=== PATIENT | female | born 1950 | race Caucasian/White ===

== ENCOUNTER 2019-03-08 10:02 | Inpatient (IN) | payer MEDICARE ==
[2019-03-08] MEDS ORDERED: Dexamethasone 10 MG/ML VIAL ONE (10:07)
[2019-03-08] MEDS ORDERED: Magnesium 2 GM/50 ML BAG (IN WATER) ONE (10:07)
[2019-03-08] MEDS ORDERED: Lorazepam 2 MG/ML VIAL ONE (10:11)
[2019-03-08] MEDS ORDERED: Albuterol Sulfate 2.5 mg/0.5 ml Neb ONE (10:27)
[2019-03-08 10:33] LABS: Actual Bicarbonate (HCO3a) 19.8 mEq/L (22-28); Analyzer IN Cardio ER; Base Excess (BEa) -6.4 mEq/L (-2.0 to +3.0); CO2 Tension 41.7 mmHg (35.0-45.0); Calcium, Ionized 1.18 mmol/L (1.12-1.30); Carboxyhemoglobin (COHb) 0.4 gm% (0.0-3.0); Hemoglobin (Hb) 13.8 g/dL (12.0-16.0); O2 Tension (PaO2) 100.4 mmHg (> 80.0); Potassium - ABG Lab 3.97 mmol/L (3.70-5.30); pH, Arterial 7.29 (7.35-7.45)
[2019-03-08 10:36] LABS: #Basophils 0.1 thou/uL (0.0-0.2); #Monocytes 0.7 thou/uL (0.11-0.59); #Neutrophils 17.4 thou/uL (1.40-6.50); %Basophils 0.3 % (0.0-1.0); %Eosinophils 0.2 % (0.0-10.0); %Lymphocytes 5.4 % (21.0-51.0); %Monocytes 3.7 % (0.0-10.0); %Neutrophils 90.4 % (42.0-75.0); Hemoglobin 13.7 g/dL (12.0-16.0); Mean Corpuscular HGB CONC 34.7 g/dL (32.0-36.0); Mean Corpuscular Hemoglobin 29.8 pg (27.0-31.0); Mean Corpuscular Volume 85.9 fL (78.0-98.0); Mean Platelet Volume 8.2 fL (7.4-10.4); Platelet Count 326 thou/uL (130-400); RBC Distribution Width 12.3 % (11.5-14.5); White Blood Cell (WBC) Count 19.3 thou/uL (4.8-10.8)
[2019-03-08 10:42] LABS: Puncture Site RR
[2019-03-08 10:43] LABS: ALV-art Gradient 104.155 (0-20)
[2019-03-08 11:00] LABS: ALT (SGPT) 15 U/L (8-55); AST (SGOT) 30 U/L (5-34); Albumin 4.4 g/dL (3.4-4.8); Alkaline Phosphatase 77 U/L (40-110); Anion Gap 17 mmol/L (10-20); BUN (Urea Nitrogen) 38 mg/dL (9.8-20.1); Bilirubin, Total 0.3 mg/dL (0.2-1.2); CK (CPK) 772 U/L (29-168); Calc. Creatinine Clearance 0 mL/min (70-130); Calcium 9.1 mg/dL (7.8-10.44); Carbon Dioxide 22 mmol/L (23-31); Chloride 104 mmol/L (98-107); Estimated GFR-MDRD 36; Globulin 2.6 g/dL (2.4-3.5); Glucose 191 mg/dL (80-115); Lipase 27 U/L (8-78); Potassium 4.2 mmol/L (3.5-5.1); Sodium 139 mmol/L (136-145)
[2019-03-08 11:19] LABS: CKMB 5.3 ng/mL (0-6.6)
--- NOTE | 2019-03-08 12:29 | PDOC.FPRHP ---
- History of Present Illness Chief Complaint: SOB History of Present Illness: This is a 68 yo female with a pmh of HTN, HLD,DM2 who presents to the ED as a transfer from [place] with a cc of SOB. She states the symptoms started last Wednesday and worsened through the weekend. They were assoicated with cough, yellow sputum production, SINGH, nausea, and wheezing. She states on Wednesday she saw her PA who prescribed 3 medication which she does not remember. (I assume an inhaler, steroids, and azithromycin, her will bring them to the nurse 's station.) She denies a history of COPD but reports a 34 pack history of smoking. She reports quitting 8 years ago. She denies chest pain, diaphoresis, fever, chills, dizziness, lightheadedness, or palpitations. She does not remember her medications but did give a list to the nurses in [place] ED Course: Nitro 1 inch lovenox 60mg aspirin 324mg methylprednisolone 125mg ipatropium albuterol neb x2 duoneb x2 Decadron 10mg - Allergies/Adverse Reactions Allergies Allergy/AdvReac Type Severity Reaction Status Date / Time diphenhydramine Allergy Verified 03/08/19 12:38 [From Benadryl] Penicillins Allergy Verified 03/08/19 12:38 - Home Medications Medication Instructions Recorded Confirmed Type Albuterol Sulfate [Ventolin Hfa] 1 puff IN PRN PRN 03/08/19 03/08/19 History Azithromycin 250 mg PO DAILY 03/08/19 03/08/19 History Cholecalciferol (Vitamin D3) 1,000 unit PO DAILY 03/08/19 03/08/19 History [Vitamin D3] Gemfibrozil 600 mg PO BID-AC 03/08/19 03/08/19 History Glimepiride 4 mg PO BID 03/08/19 03/08/19 History Liraglutide [Saxenda] 3 mg SQ DAILY 03/08/19 03/08/19 History Valsartan [Diovan] 160 mg PO DAILY 03/08/19 03/08/19 History metFORMIN HCl [Metformin HCl] 1,000 mg PO BID 03/08/19 03/08/19 History - History PMHx: HTN, HLD PSHx: Lumbar disc surgery FHx: noncontributory Social: 34 pack year history, occasional alcohol, denies drug use - Review of Systems General: denies: fever/chills, weight/appetite/sleep changes, night sweats, fatigue Eyes: denies: eye pain, vision changes ENT: reports: nasal congestion. denies: rhinorrhea Respiratory: reports: cough, congestion, shortness of breath, exercise intolerance Cardiovascular: denies: chest pain, palpitation, edema, paroxysmal nocturnal dyspnea, orthopnea Gastrointestinal: reports: nausea. denies: vomiting, diarrhea, constipation, abdominal pain, GI bleeding Genitourinary: denies: incontinence, dysuria Skin: denies: rashes, lesions Musculoskeletal: denies: pain, tenderness Neurological: denies: numbness, syncope Psychological: denies: anxiety, depression - Vital signs BP: 113/82 HR: 128 RR: 24 Tmax: 97.7 Pox: 100% on Bipap (fio2 35) Wt: 65 kg - Physical Exam Constitutional: NAD, awake, alert and oriented, well developed HEENT: PERRLA, grossly normal vision, grossly normal hearing, other (dry mm) Neck: supple, trachea midline, no JVD Chest: no-tender to palpation, no lesions Heart: normal S1/S2, no murmurs/rubs/gallops, pulses present, other (Tachycardic ) Lungs: other (Diffuse end expiratory wheezing) Abdomen: soft, non-tender, bowel sounds present, no masses/distention, no hernias Musculoskeletal: normal tone, ROM grossly normal Neurological: no focal deficit, normal sensation Skin: capillary refill <2 seconds Heme/Lymphatic: no unusual bruising or bleeding, no purpura Psychiatric: normal mood and affect, good judgment and insight FMR H&P: Results - Labs Result Diagrams: 03/08/19 10:26 03/08/19 10:26 Lab results: WBC 19.3 thou/uL (4.8-10.8) H 03/08/19 10:26 Hgb 13.7 g/dL (12.0-16.0) 03/08/19 10:26 Hct 39.6 % (36.0-47.0) 03/08/19 10:26 MCV 85.9 fL (78.0-98.0) 03/08/19 10:26 Plt Count 326 thou/uL (130-400) 03/08/19 10:26 Neutrophils % 90.4 % (42.0-75.0) H 03/08/19 10:26 ABG pH 7.29 (7.35-7.45) L 03/08/19 10:25 ABG pCO2 41.7 mmHg (35.0-45.0) 03/08/19 10:25 ABG pO2 100.4 mmHg (> 80.0) H 03/08/19 10:25 Sodium 139 mmol/L (136-145) 03/08/19 10:26 Potassium 4.2 mmol/L (3.5-5.1) 03/08/19 10:26 Chloride 104 mmol/L (98-107) 03/08/19 10:26 Carbon Dioxide 22 mmol/L (23-31) L 03/08/19 10:26 BUN 38 mg/dL (9.8-20.1) H 03/08/19 10:26 Creatinine 1.45 mg/dL (0.6-1.1) H 03/08/19 10:26 Glucose 191 mg/dL (80-115) H 03/08/19 10:26 Lactic Acid 2.8 mmol/L (0.5-2.2) H 03/08/19 10:26 Calcium 9.1 mg/dL (7.8-10.44) 03/08/19 10:26 Total Bilirubin 0.3 mg/dL (0.2-1.2) 03/08/19 10:26 AST 30 U/L (5-34) 03/08/19 10:26 ALT 15 U/L (8-55) 03/08/19 10:26 Alkaline Phosphatase 77 U/L (40-110) 03/08/19 10:26 Creatine Kinase 772 U/L (29-168) H 03/08/19 10:26 CK-MB (CK-2) 5.3 ng/mL (0-6.6) 03/08/19 10:26 B-Natriuretic Peptide 282.6 pg/mL (0-100) H 03/08/19 10:26 Serum Total Protein 7.0 g/dL (6.0-8.3) 03/08/19 10:26 Albumin 4.4 g/dL (3.4-4.8) 03/08/19 10:26 Lipase 27 U/L (8-78) 03/08/19 10:26 - Radiology Interpretation Chest x-ray Status: image reviewed by me, report reviewed by me (No acute process, pneumonia , or fluid overload) FMR H&P: A/P - Problem List (1) Acute respiratory failure with hypoxia Current Visit: Yes Status: Acute Code(s): J96.01 - ACUTE RESPIRATORY FAILURE WITH HYPOXIA (2) COPD exacerbation Current Visit: Yes Status: Acute Code(s): J44.1 - CHRONIC OBSTRUCTIVE PULMONARY DISEASE W (ACUTE) EXACERBATION (3) HTN (hypertension) Current Visit: Yes Status: Acute Code(s): I10 - ESSENTIAL (PRIMARY) HYPERTENSION (4) DM2 (diabetes mellitus, type 2) Current Visit: Yes Status: Acute (5) HLD (hyperlipidemia) Current Visit: Yes Status: Acute Code(s): E78.5 - HYPERLIPIDEMIA, UNSPECIFIED - Plan This is a 68 yo female with a pmh of HTN, DM2, HLD Acute hypoxic respiratory failure -Admit to IMCU -Bipap support -Pt will likely have short bipap requirement COPD exacerbation -As above -Duonebs, po steroids, doxycycline -Repeat cxr as needed -Pending Procal NSTEMI, likely type 2 -No chest pain -Heart score of 5 -S/P therapeutic lovenox -Cardiology consulted -Tele monitoring REJI vs. CKD 3 -Fluid recussitation -Will monitor -Holding valsartan Elevated BNP -No objective or radiographic evidence for fluid overload -Pending Echo HTN -Holding valsartan -PRN medications in place HLD -Continue home medications DM2 -Continue home saxenda and glimepiride -ACHS accuchecks, mild SSI -Holding metformin for now Code: Full Prophylaxis: None Family: at bedside Fluids: LR 125 Diet: Heart healthy Disposition: DC in 2-3 days PCP: BHAVIK Hsieh (CC) Addendum - Attending - Attending Attestation Date/Time: 03/08/19 1401 I personally evaluated the patient and discussed the management with Dr. Cole I agree with the History, Examination, Assessment and Plan documented above with any addition or exceptions noted below. See my dictated H&P for details. document #[id number]
[2019-03-08] MEDS ORDERED: HumaLOG 300 UNITS/3 ML VIAL SC PRN (13:33)
[2019-03-08] MEDS ORDERED: Dextrose 5% in Water 1,000 ML IV PRN (13:33)
[2019-03-08] MEDS ORDERED: Dextrose 50% Abboject 50 ML SYRINGE SLOW IVP PRN (13:33)
[2019-03-08] MEDS ORDERED: Nitroglycerin 0.4 MG TAB (25 Tab Bottle) SL PRN (13:33)
[2019-03-08] MEDS ORDERED: Ondansetron ODT 4 MG TAB PO PRN (13:33)
[2019-03-08] MEDS ORDERED: Ondansetron PF 4 MG/2 ML Vial IVP PRN (13:33)
[2019-03-08 13:44] VITALS: BMI 28.0
[2019-03-08 13:58] LABS: Hemoglobin A1c 6.7 % (4.0-6.0)
--- NOTE | 2019-03-08 14:06 | HP ---
CHIEF COMPLAINT: Shortness of breath. HISTORY OF PRESENT ILLNESS: I personally examined and assessed the patient and reviewed all documentation and orders and discussed the care of this patient with Dr. Cole. I agree with all documentation of H and P unless otherwise stated in the following attestation. In summary, Ms. Ayon is a pleasant 68-year-old female with known past medical history of insulin-dependent type 2 diabetes mellitus and chronic bronchitis. She presents with a 3- to 4-day history of progressively worsening shortness of breath. She states she was seen by her PCP, who is a PA in [facility] in [place] 2 days ago and was started on oral steroids, antibiotics, and inhalers. The patient and her state that she progressively worsened throughout the past 2 days, prompting her to seek evaluation in the emergency room this morning. States it has been several years since her last COPD flare. The patient is not currently smoking. Denies fevers or chills. While in the [facility], the patient was found to have elevated troponins. She was given therapeutic Lovenox, IV Decadron, aspirin, DuoNebs, and Levaquin. She was also given Solu-Medrol and IV magnesium. She arrived to [facility] in [place] on 6L nasal cannula, was started on BiPAP. She states she is breathing much more easily on BiPAP. Please see Dr. Cole's note for past medical, surgical, social, family, and medication history. FOCUSED PHYSICAL EXAMINATION: VITAL SIGNS: Blood pressure 121/86, pulse 131, respiratory rate 24, temperature 97.9, and oxygen saturation 100% on BiPAP, 31% FiO2. GENERAL: Mild respiratory distress. Alert and oriented x4. Answers questions appropriately. Speaks in full sentences. PULMONARY: Diffuse wheezing, increased respiratory work. CARDIAC: Tachycardic rate, regular rhythm. No murmurs, rubs, or gallops. SKIN: Warm, dry, and intact. PERTINENT LABORATORY FINDINGS: White blood cell count 12.7, trended up to 19.3. Blood gas showed a pH 7.29, pCO2 of 41, pO2 of 100.4, bicarbonate 19.8. Creatinine 1.38 and GFR 38. BNP 228, trended up to 282. Troponin 1.081, trended up to 1.232. Lactic acid 2.8. Influenza negative. Chest x-ray, personally reviewed by me, no obvious infiltrate or signs of pulmonary vascular congestion. No acute processes on the official read. EKG, reviewed by me, taken in [place] [facility]: Sinus tachycardia, rate 127, normal intervals, no overt ST elevation or depression. No T-wave inversions noted. No change from EKG in [facility]. ASSESSMENT AND PLAN: Ms. Ayon is a 68-year-old female, who presents with a 3 - to 4-day history of worsening shortness of breath as noted, appears to have failed outpatient treatment for chronic obstructive pulmonary disease exacerbation as follows. 1. Acute hypoxic respiratory failure secondary to chronic obstructive pulmonary disease exacerbation. We will continue steroids and antibiotics. Switch antibiotics to doxycycline. Procalcitonin has been drawn and is pending at this time. Continue BiPAP in the IMCU. Cultures drawn. 2. Chronic obstructive pulmonary disease exacerbation. See #1. 3. Acute viu-PB-fpljexvnt myocardial infarction type 2 secondary to chronic obstructive pulmonary disease exacerbation. The patient denies history of coronary artery disease. Cardiology has been consulted. Continue Lovenox. Transthoracic echocardiogram ordered due to elevated BNP. I suspect all of her cardiac lab abnormalities are related to her underlying chronic obstructive pulmonary disease exacerbation. We will risk stratify and start appropriate medications. 4. Insulin-dependent type 2 diabetes mellitus. Aggressive sliding scale coverage. 5. Chronic medical problems, per resident notes. DISPOSITION: Inpatient IMCU greater than 2 midnights. Job ID: [id number] MTDD
[2019-03-08] MEDS: Lactated Ringer's 1,000 ML IV SCH ×2 (14:10→17:08)
[2019-03-08 14:11] LABS: Lactic Acid 4.6 mmol/L (0.5-2.2)
[2019-03-08 14:16] LABS: Critical Call Chem Troponin I RESULT DECREASING; Troponin I 0.916 ng/mL (< 0.028)
--- NOTE | 2019-03-08 14:52 | CON ---
DATE OF CONSULTATION: 03/08/2019 REASON FOR CONSULTATION: COPD exacerbation. HISTORY OF PRESENT ILLNESS: Ms. Ayon is a pleasant 68-year-old female, who presents with a 3-day history of increasing shortness of breath and wheezing. She saw her primary care provider on Wednesday and was prescribed some medication, which she does not know. Despite that, she got worse and came to the hospital. She has been given breathing treatments, steroids, and was intermittently on BiPAP, but now has improved and says she is breathing better. She has a 28-pqqv-diha history of smoking, but has not smoked in the last 8 years. She has not been exposed to anybody sick. She denies any history of COPD or asthma, but says she did have a bronchitis attack 5 years ago, for which she was hospitalized. PAST MEDICAL HISTORY: 1. Presumed COPD based on history. 2. Hypertension. 3. Hyperlipidemia. PAST SURGICAL HISTORY: Lumbar disk surgery. FAMILY MEDICAL HISTORY: Unremarkable. SOCIAL HISTORY: Smoking history as outlined above. Occasionally drinks alcohol. Does not use illicit drugs. REVIEW OF SYSTEMS: Twelve-point review of systems is otherwise negative. MEDICATIONS: Medications prior to admission: 1. Albuterol. 2. Azithromycin. 3. Cholecalciferol. 4. Gemfibrozil. 5. Glimepiride. 6. Diovan. 7. Metformin. PHYSICAL EXAMINATION: VITAL SIGNS: Temperature 96, pulse 129, blood pressure 123/63, O2 saturation 96%. GENERAL: She is awake, alert, and in no acute distress, but has profound audible wheezing. HEENT: Pupils are reactive. Sclerae are anicteric. Oropharynx is clear. NECK: No adenopathy. No JVD. No accessory muscle use. LUNGS: She has diffuse expiratory wheezing, best heard posteriorly. CARDIOVASCULAR: S1 and S2. Regular without audible murmur. ABDOMEN: Soft. Nontender to palpation. EXTREMITIES: No clubbing, cyanosis, or edema. LABORATORY DATA: Sodium 139, potassium 4.2, chloride 104, CO2 of 22, BUN 38, creatinine 1.4, glucose 191. Lactate was 4.6. Hemoglobin A1c 6.7. Troponin 0.9. CPK 772. ABG; pH of 7.29, pCO2 of 42, pO2 of 100. White blood cell count 19.3, hematocrit 39.6, platelet count 326. Chest x-ray from [place] demonstrates no infiltrates, mass, or effusion. ASSESSMENT: 1. Chronic obstructive pulmonary disease with exacerbation. 2. Acute hypoxic respiratory failure, requiring noninvasive ventilation. 3. Acute kidney injury. 4. Lactic acidosis. PLAN: 1. The patient has improved with treatment. She needs to stay in the intermediate care unit for BiPAP as needed. 2. I would treat her with intravenous steroids. 3. I would make her frequency of breathing treatments much sooner than what currently is written. 4. Agree with the empiric antibiotics. Job ID: [id number]
--- NOTE | 2019-03-08 15:33 | CON ---
DATE OF CONSULTATION: HISTORY OF PRESENT ILLNESS: The patient is a pleasant 68-year-old woman, who presents with increasing dyspnea. The patient has a history of bronchitis. The patient has no known cardiac history. The patient reports that she developed the acute onset of severe dyspnea. The patient denied having any chest discomfort. She was noted to have an elevated troponin level and admitted for further evaluation. The patient has several cardiac risk factors including hypertension, dyslipidemia, diabetes mellitus, and a family history of coronary artery disease. PAST MEDICAL HISTORY: 1. Bronchitis. 2. Diabetes mellitus. 3. Hypertension. 4. Dyslipidemia. PAST SURGICAL HISTORY: Lumbar disc surgery. SOCIAL HISTORY: Former smoker. FAMILY HISTORY: Positive family history of coronary artery disease. ALLERGIES: DIPHENHYDRAMINE AND PENICILLIN. SHE IS INTOLERANT TO STATIN THERAPY. MEDICATIONS: 1. Gemfibrozil 600 b.i.d. 2. Glimepiride 4 b.i.d. 3. Diovan 160 daily. 4. Metformin 1000 b.i.d. REVIEW OF SYSTEMS: Ten-point system otherwise unremarkable. PHYSICAL EXAMINATION: GENERAL: Well-developed woman, in mild distress. VITAL SIGNS: Blood pressure of 123/63. NECK: Full. LUNGS: Have marked diffuse bilateral wheezes. HEART: Regular rate and rhythm. Normal S1 and S2. No murmurs. ABDOMEN: Nondistended. EXTREMITIES: Showed no edema. VASCULAR: Radial pulses 2+. LABORATORY DATA: Sodium 139, potassium 4.2, chloride 104, bicarb 22, BUN 38, creatinine 1.45. Her CPK was 772 with an MB of 5.3, troponin 1.2. White blood cell count 19.3, hemoglobin 13.7, hematocrit 39.6, and platelets are 326. Her EKG revealed sinus tachycardia, otherwise normal ECG. Chest x-ray revealed normal heart size with no edema. IMPRESSION: 1. Chronic obstructive pulmonary disease exacerbation. 2. Elevated troponin with normal MB, probable type 2 myocardial infarction. 3. Diabetes mellitus. 4. Hypertension. 5. Renal insufficiency. 6. Dyslipidemia. This patient presents with a chronic obstructive pulmonary disease exacerbation. Her troponin is mildly elevated. This is most likely a type 2 myocardial infarction and not an acute coronary event. She does have multiple risk factors. After she recovers from her COPD exacerbation, she should undergo stress testing. The patient has been intolerant to statin therapy, but has not tried Livalo. We would also recommend the patient switch to Vascepa, which is recommended in all patients with type 2 diabetes mellitus and high triglycerides. We would discontinue her gemfibrozil. We will follow this patient with you through her hospitalization. Job ID: [id number] MTDD
[2019-03-08] MEDS ORDERED: Lactated Ringer's 500 ML IV SCH (15:45)
[2019-03-08 16:56] LABS: Critical Call Chem Troponin I RESULT DECREASING; Troponin I 0.773 ng/mL (< 0.028)
[2019-03-08] MEDS: HumaLOG 300 UNITS/3 ML VIAL SC PRN ×2 (17:06→20:29)
[2019-03-08] MEDS: Glimepiride 4 MG TAB PO SCH (17:07)
[2019-03-08] MEDS: Gemfibrozil 600 MG TAB PO SCH (17:07)
[2019-03-08] MEDS: methylPREDNISolone Sod Succ 40 MG VIAL IVP SCH (17:07)
[2019-03-08 19:47] LABS: Lactic Acid 3.7 mmol/L (0.5-2.2)
[2019-03-08] MEDS: Enoxaparin Sodium 40 MG/0.4 ML SYRINGE SC SCH (20:22)
[2019-03-08] MEDS: Doxycycline 100 MG CAP PO SCH (20:22)
[2019-03-08] MEDS: Icosapent Ethyl 1 GM CAPSULE PO SCH (20:22)
[2019-03-08] MEDS: Acetaminophen 325 MG TAB PO PRN (20:29)
[2019-03-08] MEDS ORDERED: Rosuvastatin 10 MG TAB PO SCH (21:00)
[2019-03-08] MEDS ORDERED: Enoxaparin Sodium 60 MG/0.6 ML SYRINGE SC SCH (21:00)
[2019-03-09] MEDS: methylPREDNISolone Sod Succ 40 MG VIAL IVP SCH ×4 (00:06→17:45)
[2019-03-09] MEDS: Benzonatate 100 MG CAP PO PRN ×3 (00:06→20:33)
[2019-03-09] MEDS: Lactated Ringer's 1,000 ML IV SCH ×3 (03:41→16:28)
[2019-03-09] MEDS: Acetaminophen 325 MG TAB PO PRN ×3 (03:43→20:33)
[2019-03-09 03:46] LABS: #Lymphocytes 0.6 thou/uL (1.20-3.40); #Monocytes 0.4 thou/uL (0.11-0.59); #Neutrophils 7.3 thou/uL (1.40-6.50); %Basophils 0.3 % (0.0-1.0); %Eosinophils 0.2 % (0.0-10.0); %Lymphocytes 6.6 % (21.0-51.0); %Monocytes 5.2 % (0.0-10.0); %Neutrophils 87.7 % (42.0-75.0); Hemoglobin 11.8 g/dL (12.0-16.0); Mean Corpuscular HGB CONC 34.2 g/dL (32.0-36.0); Mean Corpuscular Hemoglobin 29.5 pg (27.0-31.0); Mean Corpuscular Volume 86.5 fL (78.0-98.0); Mean Platelet Volume 8.1 fL (7.4-10.4); Platelet Count 229 thou/uL (130-400); RBC Distribution Width 12.3 % (11.5-14.5); Red Blood Cell (RBC) Count 3.98 mill/uL (4.20-5.40); White Blood Cell (WBC) Count 8.3 thou/uL (4.8-10.8)
[2019-03-09 03:58] LABS: Anion Gap 14 mmol/L (10-20); BUN (Urea Nitrogen) 42 mg/dL (9.8-20.1); Calc. Creatinine Clearance 39 mL/min (70-130); Calcium 8.5 mg/dL (7.8-10.44); Carbon Dioxide 25 mmol/L (23-31); Cardiac Risk 5.5 (Less than 4.5); Chloride 103 mmol/L (98-107); Cholesterol 210 mg/dl (< 200 Desired); Estimated GFR-MDRD 36; Glucose 258 mg/dL (80-115); HDL Cholesterol 38 mg/dL (>60 Neg Risk); LDL Cholesterol, Calculated 138 mg/dL; Potassium 4.5 mmol/L (3.5-5.1); Sodium 137 mmol/L (136-145); Triglycerides 171 mg/dL (Less than 150)
--- NOTE | 2019-03-09 06:12 | PDOC.FM ---
- Subjective Subjective: Pt states she is feeling better than yesterday. She is not 100% but better. She reports some dyspnea and SOB. She denies chest pain, nausea, vomiting, or abdominal pain. She wants to see her grandkids as soon as she can but understands that she likely needs to stay longer. - Objective MAR Reviewed: Yes Vital Signs & Weight: Vital Signs (12 hours) Temp Pulse Resp Pulse Ox 03/09/19 03:39 97.2 F L 03/09/19 03:28 103 H 20 97 03/09/19 01:07 104 H 22 H 98 03/08/19 23:48 97.0 F L 03/08/19 22:04 92 22 H 99 03/08/19 19:25 97.5 F L 03/08/19 19:11 114 H 22 H 97 Weight Weight 67.358 kg Most Recent Monitor Data Heart Rate from ECG 104 NIBP 144/79 NIBP BP-Mean 100 Respiration from ECG 23 SpO2 98 I&O: 03/07/19 03/08/19 03/09/19 06:59 06:59 06:59 Intake Total 1387 Output Total 250 Balance 1137 Result Diagrams: 03/09/19 03:00 03/09/19 03:00 Phys Exam - Physical Examination Constitutional: NAD HEENT: moist MMs Neck: no JVD Diffuse wheezing, improved air movement Cardiovascular: RRR, no significant murmur Gastrointestinal: soft, non-tender, no distention, positive bowel sounds Musculoskeletal: no edema, pulses present Neurological: moves all 4 limbs Psychiatric: A&O x 3 Skin: cap refill <2 seconds Dx/Plan (1) Acute respiratory failure with hypoxia Code(s): J96.01 - ACUTE RESPIRATORY FAILURE WITH HYPOXIA Status: Acute (2) COPD exacerbation Code(s): J44.1 - CHRONIC OBSTRUCTIVE PULMONARY DISEASE W (ACUTE) EXACERBATION Status: Acute (3) HTN (hypertension) Code(s): I10 - ESSENTIAL (PRIMARY) HYPERTENSION Status: Acute (4) DM2 (diabetes mellitus, type 2) Status: Acute (5) HLD (hyperlipidemia) Code(s): E78.5 - HYPERLIPIDEMIA, UNSPECIFIED Status: Acute - Plan Plan: This is a 68 yo female with a pmh of HTN, DM2, HLD Acute hypoxic respiratory failure -Off bipap, likely transfer to tele today COPD exacerbation -As above -Duonebs, po steroids, doxycycline -Repeat cxr as needed NSTEMI, likely type 2 -No chest pain -Heart score of 5 -Cardiology consulted -Tele monitoring REJI vs. CKD 3 -Fluid resuscitation -Will monitor -Holding valsartan Elevated BNP -No objective or radiographic evidence for fluid overload -Pending Echo HTN -Holding valsartan -PRN medications in place HLD -Continue home medications DM2 -Continue home saxenda and glimepiride -ACHS accuchecks, aggressive SSI, starting lantus temporarily -Holding metformin for now Addendum - Attending - Attending Attestation Date/Time: 03/09/19 1123 I personally evaluated the patient and discussed the management with Dr. Cole I agree with the History, Examination, Assessment and Plan documented above with any addition or exceptions noted below. Off BiPAP and breathing better today. Diffuse wheezes throughout. Will Transfer to telemetry and continue current treatment. Stress test in 1-2 days vs outpatient.
[2019-03-09] MEDS: HumaLOG 300 UNITS/3 ML VIAL SC PRN ×4 (06:25→21:48)
[2019-03-09] MEDS: Glimepiride 4 MG TAB PO SCH ×2 (06:25→17:45)
[2019-03-09] MEDS: Gemfibrozil 600 MG TAB PO SCH (06:25)
[2019-03-09] MEDS ORDERED: Insulin Glargine 10 UNITS in Pre-Filled Syringe 1 EACH SC SCH (09:00)
[2019-03-09] MEDS ORDERED: predniSONE 20 MG TAB PO SCH (09:00)
[2019-03-09] MEDS ORDERED: LIRAGLUTIDE 3 MG SC SCH (09:00)
[2019-03-09] MEDS: Icosapent Ethyl 1 GM CAPSULE PO SCH ×2 (09:08→20:31)
[2019-03-09] MEDS: Doxycycline 100 MG CAP PO SCH ×2 (09:08→20:32)
[2019-03-09] MEDS: Aspirin 325 mg Enteric Coated Tablet PO SCH (09:08)
--- NOTE | 2019-03-09 18:35 | PRG ---
DATE OF SERVICE: 03/09/2019 SUBJECTIVE: Ms. Ayon says she feels 100% better than when she came in. She says this is only the second time this has ever happened to her. The last time being 5 years ago. She is not currently smoking. OBJECTIVE: VITAL SIGNS: Oximetry is 97% on 2 L, respiratory rates in the teens, blood pressure 151/81, heart rate is 100. LUNGS: Distant and clear now. HEART: Regular rhythm. ABDOMEN: Soft. IMPRESSION AND PLAN: Chronic obstructive pulmonary disease/reactive airways. Clinically improved. Her echo ejection fraction on echocardiogram is estimated to be mildly reduced to 45% to 50%. Cardiology is following and I believe plans some more testing. She probably can be switched to nebulized treatments every 4 hours. She is currently not on any steroids. She currently is on IV steroids, I plan to discontinue those. Start p.o. steroids and add inhaled steroids to her nebulizer regimen. We will continue to follow. Job ID: [id number]
[2019-03-09] MEDS: Budesonide 0.5 MG/2 ML NEB INH SCH (18:45)
[2019-03-09] MEDS: Mometasone/Formoterol 120 PUFF INHALER INH SCH (18:46)
[2019-03-09] MEDS: Enoxaparin Sodium 40 MG/0.4 ML SYRINGE SC SCH (20:31)
[2019-03-09] MEDS ORDERED: Atorvastatin Calcium 40 MG TAB PO SCH (21:00)
[2019-03-10] MEDS: Acetaminophen 325 MG TAB PO PRN (00:15)
[2019-03-10] MEDS: Lactated Ringer's 1,000 ML IV SCH ×2 (01:15→06:17)
[2019-03-10] MEDS: Benzonatate 100 MG CAP PO PRN ×2 (02:02→16:24)
[2019-03-10 04:25] LABS: #Lymphocytes 1.2 thou/uL (1.20-3.40); #Neutrophils 9.1 thou/uL (1.40-6.50); %Eosinophils 0.2 % (0.0-10.0); %Lymphocytes 10.8 % (21.0-51.0); %Monocytes 8.5 % (0.0-10.0); %Neutrophils 80.6 % (42.0-75.0); Hemoglobin 11.7 g/dL (12.0-16.0); Mean Corpuscular HGB CONC 33.3 g/dL (32.0-36.0); Mean Corpuscular Hemoglobin 29.1 pg (27.0-31.0); Mean Corpuscular Volume 87.5 fL (78.0-98.0); Mean Platelet Volume 8.8 fL (7.4-10.4); Platelet Count 237 thou/uL (130-400); RBC Distribution Width 12.4 % (11.5-14.5); Red Blood Cell (RBC) Count 4.03 mill/uL (4.20-5.40); White Blood Cell (WBC) Count 11.2 thou/uL (4.8-10.8)
[2019-03-10 04:32] LABS: Anion Gap 12 mmol/L (10-20); BUN (Urea Nitrogen) 44 mg/dL (9.8-20.1); Calc. Creatinine Clearance 40 mL/min (70-130); Calcium 8.6 mg/dL (7.8-10.44); Carbon Dioxide 25 mmol/L (23-31); Chloride 105 mmol/L (98-107); Estimated GFR-MDRD 37; Glucose 242 mg/dL (80-115); Potassium 4.3 mmol/L (3.5-5.1); Sodium 138 mmol/L (136-145)
--- NOTE | 2019-03-10 06:44 | PDOC.FM ---
- Subjective Subjective: pt undergoing stress this AM. no acute events overnight. - Objective Vital Signs & Weight: Vital Signs (12 hours) Temp Pulse Resp Pulse Ox 03/10/19 02:21 104 H 20 96 03/10/19 00:00 97.6 F 03/09/19 22:21 106 H 20 97 03/09/19 20:00 98.2 F 03/09/19 18:46 104 H 20 97 03/09/19 18:45 104 H 20 97 03/09/19 18:44 104 H 20 97 Weight Weight 67.358 kg Most Recent Monitor Data Heart Rate from ECG 94 NIBP 166/78 NIBP BP-Mean 107 Respiration from ECG 19 SpO2 96 I&O: 03/08/19 03/09/19 03/10/19 06:59 06:59 06:59 Intake Total 3196 2354 Output Total 850 4300 Balance 2346 -1946 Result Diagrams: 03/10/19 03:31 03/10/19 03:31 Dx/Plan (1) Acute respiratory failure with hypoxia Code(s): J96.01 - ACUTE RESPIRATORY FAILURE WITH HYPOXIA Status: Acute (2) COPD exacerbation Code(s): J44.1 - CHRONIC OBSTRUCTIVE PULMONARY DISEASE W (ACUTE) EXACERBATION Status: Acute (3) DM2 (diabetes mellitus, type 2) Status: Acute (4) HLD (hyperlipidemia) Code(s): E78.5 - HYPERLIPIDEMIA, UNSPECIFIED Status: Acute (5) HTN (hypertension) Code(s): I10 - ESSENTIAL (PRIMARY) HYPERTENSION Status: Acute - Plan Plan: Acute hypoxic respiratory failure -improved, transfer to [facility] when bed available COPD exacerbation -As above -Duonebs, po steroids, doxycycline NSTEMI, likely type 2 -No chest pain, Heart score of 5 -Cardiology consulted - stress test pending REJI vs. CKD 3 -Fluid resuscitation -Holding valsartan/metformin -eval further today Elevated BNP -No objective or radiographic evidence for fluid overload - echo wnl HTN -Holding valsartan -PRN medications in place HLD -Continue home medications DM2 -Continue home saxenda and glimepiride -ACHS accuchecks, aggressive SSI, starting lantus temporarily -Holding metformin for now dispo: increase glucose control, await stress results for further dispo Addendum - Attending - Attending Attestation Date/Time: 03/10/19 110 I personally evaluated the patient and discussed the management with Dr. Brannon. I agree with the History, Examination, Assessment and Plan documented above with any addition or exceptions noted below. Lungs CTA-B on exam. RRR on cardiac exam. NM stress test showed fixed defect in apex. Will await cardiology recommendations for inpatient vs. outpatient cath. From a respiratory stand point, she is stable for d/c. Dispo pending plan with cardiology.
[2019-03-10] MEDS ORDERED: predniSONE 20 MG TAB PO SCH (08:00)
[2019-03-10] MEDS ORDERED: Insulin Glargine 15 UNITS in Pre-Filled Syringe 1 EACH SC SCH (09:00)
[2019-03-10] MEDS ORDERED: Valsartan 80 MG TAB PO SCH (09:00)
--- NOTE | 2019-03-10 10:45 | NM ---
NUCLEAR MEDICINE CARDIAC STRESS WITH EF AND WALL MOTION: HISTORY: Irregular EKG. HISTORY: Tobacco. Dyslipidemia. TECHNIQUE: Patient administered 10.3 mCi of technetium 99m submitted for rest imaging and 32.40 mCi of technetiu m 99m sestamibi for stress imaging. FINDINGS: There does appear to be a small focus of fixed defect involving the midportion of the septum and card iac apex. There does not appear to be any reversibility in the left ventricle. End diastolic volume is 87 mL. End systolic volume is 41 mL. TID day: 1.11. Cardiac gating and motion: Appropriate motion and thickening. 53% ejection fraction. IMPRESSION: Small fixed defect in the midportion of the septum and cardiac apex. Transcribed Date/Time: 03/10/2019 10:52 AM
[2019-03-10] MEDS: Doxycycline 100 MG CAP PO SCH (10:54)
[2019-03-10] MEDS: Icosapent Ethyl 1 GM CAPSULE PO SCH (10:54)
[2019-03-10] MEDS: Aspirin 325 mg Enteric Coated Tablet PO SCH (10:55)
[2019-03-10] MEDS: Glimepiride 4 MG TAB PO SCH ×2 (10:55→16:24)
[2019-03-10] MEDS: Mometasone/Formoterol 120 PUFF INHALER INH SCH (11:17)
[2019-03-10] MEDS: Budesonide 0.5 MG/2 ML NEB INH SCH (11:27)
[2019-03-10] MEDS ORDERED: Regadenoson 0.4 MG/5 ML SYRINGE ONE (11:48)
--- NOTE | 2019-03-10 13:44 | PRG ---
DATE OF SERVICE: 03/10/2019 SUBJECTIVE: The patient is doing reasonably well. Has no complaints. She wants to go home. OBJECTIVE: VITAL SIGNS: Her temperature is 97.6, pulse 85, respirations 19, and O2 saturation 97% on 2 L. HEENT: Unremarkable. NECK: No adenopathy or JVD. LUNGS: Clear without wheezing or rhonchi. CARDIAC: S1 and S2 regular. ABDOMEN: Soft. EXTREMITIES: No edema. ASSESSMENT: Chronic obstructive pulmonary disease/asthmatic bronchitis with exacerbation. PLAN: From my standpoint, she is clear to go home. She should finish out a course of antibiotics, taper steroids, and be given breathing treatments on as-needed basis. She should follow up in the office within a month and have PFTs performed. Pulmonary will sign off. Job ID: [id number]
[2019-03-10 16:06] VITALS: TEMP 97.5
[2019-03-10 16:30] VITALS: BP 182/82
--- NOTE | 2019-03-13 09:48 | DIS ---
DATE OF ADMISSION: 03/08/2019 DATE OF DISCHARGE: 03/10/2019 ADMITTING ATTENDING: Dr. Haris Allen. DISCHARGE ATTENDING: Dr. Haris Allen. CONSULTS: 1. Pulmonology, Dr. Rufino Riddle. 2. Cardiology, Dr. Israel Johansen. RESIDENT: Fam Brannon DO. DISCHARGE MEDICATIONS: 1. Glimepiride 4 mg p.o. b.i.d. 2. Gemfibrozil 600 mg p.o. b.i.d. 3. Metformin 1000 mg p.o. b.i.d. 4. Valsartan 160 mg p.o. daily. 5. Saxenda 3 mg SQ daily. 6. Vitamin D3 1000 units p.o. daily. 7. Azithromycin 250 mg qd. 8. Ventolin 1 puff inhaled p.r.n. 9. Doxycycline 100 mg p.o. b.i.d. 10. Dulera two puffs inhaled b.i.d. 11. Prednisone 40 mg p.o. q.a.m. with meals for the next 3 days. Discontinued medications are azithromycin. DISCHARGE DIAGNOSIS: Acute hypoxic respiratory failure secondary to chronic obstructive pulmonary disease exacerbation. SECONDARY DIAGNOSES: 1. Non-ST elevation myocardial infarction type 2. 2. Acute kidney injury versus chronic kidney disease. 3. Elevated BNP. 4. Hypertension. 5. Hyperlipidemia. 6. Diabetes mellitus type 2. IMAGING: Echocardiogram significant for left ventricular ejection fraction visually estimated at 45% to 50%. Nuclear medicine stress test is negative for reversible ischemia. HISTORY OF PRESENT ILLNESS/HOSPITAL COURSE: Ms. Ayon is a 68-year-old female with past medical history significant for hypertension, hyperlipidemia, diabetes mellitus type 2, presents to the emergency department as a transfer from [place] for a chief complaint of shortness of breath. This has happened to her before. She has had a change in sputum production. She denies having a known history of COPD, but has a significant past smoking history. Denied any chest pain at that time. In the emergency department, she was given nitroglycerin, Lovenox , aspirin, methylprednisone, ipratropium/albuterol nebs and Decadron 10 mg. The patient was determined to have acute hypoxic respiratory failure secondary to COPD versus acute coronary syndrome, indeterminate admission to the hospital for further evaluation and treatment was warranted. She was admitted to the IMCU at that time. The patient was placed on BiPAP, but quickly improved, weaned down to oxygen and eventually weaned off oxygen. The patient underwent a stress test, which was within normal limits. The patient continued to improve. Further evaluation revealed that most likely cause of her symptoms was acute COPD exacerbation. Deemed stable for discharge home with followup scheduled for pulmonology. DISCHARGE INSTRUCTIONS: 1. Location: Home. 2. Diet: Heart healthy, low-sodium, diabetic. 3. Activity: As tolerated. 4. Followup: Follow up with PCP in 3 to 7 days and pulmonology in 2 weeks. Job ID: [id number] [email or web address]
== END 2019-03-10 17:32 | disposition home or self-care (01) | DRG 189 ==
LOC: ERS 10:02 → IMCU/EMU 13:24
PROVIDERS: ADMIT Family Medicine; ATTEND Family Medicine
DX: J96.01 Acute respiratory failure with hypoxia (principal); I21.A1 Myocardial infarction type 2; J44.1 Chronic obstructive pulmonary disease with (acute) exacerbation; N17.9 Acute kidney failure, unspecified; E87.2 Acidosis; E78.5 Hyperlipidemia, unspecified; E11.9 Type 2 diabetes mellitus without complications; I12.9 Hypertensive chronic kidney disease with stage 1 through stage 4 chronic kidney disease, or unspecified chronic kidney disease; E11.22 Type 2 diabetes mellitus with diabetic chronic kidney disease; N18.3 Chronic kidney disease, stage 3 (moderate); Z79.4 Long term (current) use of insulin
CPT/HCPCS: 36415; 36416; 78452; 80048; 80061; 82550; 82553; 82805; 83036; 83605; 83690; 83880; 84145; 85025; 87040; 87804; 93005; 93017; 93306; 94640; 94660; 96365; 96366; 96368; 96375; 99292; A9500; J1100; J1650; J1815; J1956; J2060; J2785; J2920; J3475; J7512; J7611; J7620; J7626